=== PATIENT | male | born 1950 | race Caucasian/White ===

== ENCOUNTER → 2017-03-07 | Outpatient (CLI) | payer MEDICARE, BC | LOC: MW.CHNEURO 08:00 | PROVIDERS: ATTEND Psychiatry & Neurology Neuromuscular Medicine | DX: G20 Parkinson's disease (principal); K59.00 Constipation, unspecified | CPT/HCPCS: 99214 ==

== ENCOUNTER 2020-11-11 07:55 | Day surgery (SDC) | payer MEDICARE, BC ==
[~2020-11-11 07:55] MED LIST: Lactated Ringers 1,000 ML IV SCH; Propofol 200 MG/20 ML SDV ONE; fentaNYL 100 MCG/2 ML SDV ONE
--- NOTE | 2020-11-11 08:28 | PCM.PREANE ---
Preanesthetic Assessment - Anesthesia/Transfusion/Family Hx Anesthesia History: Prior Anesthesia Without Reaction Other Type of Anesthesia Reaction Comment: Denies any known problem as child Family History of Anesthesia Reaction: No Transfusion History: No Prior Transfusion(s) - Review of Systems General: No Symptoms Pulmonary: No Symptoms Cardiovascular: No Symptoms Gastrointestinal: No Symptoms Neurological: Pre-Existing Deficit, Tremors Other: Reports: None - Physical Assessment NPO Status Date: 11/10/20 Height: 6 ft 2 in Weight: 84.368 kg ASA Class: 2 Mental Status: Alert & Oriented x3 Airway Class: Mallampati = 2 Mouth Opening Finger Breadths: 2 (markedly limited) ROM/Head Extension: Full Lungs: Clear to Auscultation, Normal Respiratory Effort Cardiovascular: Regular Rate, Regular Rhythm - Allergies Allergies/Adverse Reactions: Allergies Allergy/AdvReac Type Severity Reaction Status Date / Time Penicillins Allergy Cannot Verified 11/07/20 10:19 Remember - Blood Blood Available: No - Anesthesia Plan Pre-Op Medication Ordered: None - Acknowledgements Anesthesia Type Planned: General Anesthesia Pt an Appropriate Candidate for the Planned Anesthesia: Yes Alternatives and Risks of Anesthesia Discussed w Pt/Guardian: Yes Pt/Guardian Understands and Agrees with Anesthesia Plan: Yes PreAnesthesia Questionnaire HEENT History: Reports: Other (See Below) Other HEENT History: wears glasses Cardiovascular History: Reports: High Cholesterol, Hypertension Respiratory History: Reports: Sleep Apnea Other Respiratory History: diagnosed with sleep apnea 20 years ago, has lost weight since then, does not use CPAP Gastrointestinal History: Reports: Chronic Constipation, Colon Polyp, GERD Genitourinary History: Reports: Other (See Below) Other Genitourinary History: Elevated prostate specific antigen, Frequency in urination Musculoskeletal History: Reports: None Neurological History: Reports: Parkinson's Other Neuro History: Idiopathic Parkinsonism Psychiatric History: Reports: Anxiety Endocrine/Metabolic History: Reports: Hypothyroidism Other Endocrine/Metabolic History: Hypothyroidism Hematologic History: Reports: None Immunologic History: Reports: None Oncologic (Cancer) History: Reports: None Dermatologic History: Reports: None - Past Surgical History Head Surgeries/Procedures: Reports: None HEENT Surgical History: Reports: Tonsillectomy Cardiovascular Surgical History: Reports: None Respiratory Surgical History: Reports: None GI Surgical History: Reports: Colonoscopy Male Surgical History: Reports: Vasectomy Endocrine Surgical History: Reports: None Neurological Surgical History: Reports: None Musculoskeletal Surgical History: Reports: None Oncologic Surgical History: Reports: None Dermatological Surgical History: Reports: None - SUBSTANCE USE Tobacco Use Status *Q: Never Tobacco User - HOME MEDS Home Medications: Home Meds Carbidopa/Levodopa [Sinemet Cr 25-100 Tablet] 2 tab PO TID 08/26/15 [History] Levothyroxine Sodium [Synthroid] 100 mcg PO ACBREAKFAST 08/26/15 [History] Multivitamin with Minerals [Multiple Vitamin] 1 tab PO DAILY 08/26/15 [History] Omeprazole [Prilosec] 1 tab PO DAILY 08/26/15 [History] Ramipril [Altace] 5 mg PO DAILY 08/26/15 [History] Simvastatin 20 mg PO BEDTIME 08/26/15 [History] traZODone HCl [Trazodone HCl] 150 mg PO BEDTIME 08/26/15 [History] L.acidoph,Paracasei, B.lactis [Probiotic] 1 tab PO DAILY 11/07/20 [History] Melatonin/Pyridoxine HCl (B6) [Melatonin 3 mg Tablet] 3 mg PO BEDTIME PRN 11/07/20 [History] Psyllium Husk (With Sugar) [Fiber Powder] 1 dose PO ASDIRECTED 11/07/20 [History] Sildenafil Citrate 20 mg PO ASDIRECTED PRN 11/07/20 [History] polyethylene glycoL 3350 [MiraLAX] 1 dose PO ASDIRECTED PRN 11/07/20 [History] - CURRENT (IN HOUSE) MEDS Current Meds: Current Medications Lactated Ringer's (Ringers, Lactated) 1,000 mls @ 125 mls/hr IV ASDIRECTED FREDERIC Discontinued Medications Fentanyl (Sublimaze) Confirm Administered Dose 100 mcg .ROUTE .STK-MED ONE Stop: 11/11/20 07:04 Lidocaine HCl (Xylocaine-Mpf 1%) Confirm Administered Dose 5 ml .ROUTE .STK-MED ONE Stop: 11/11/20 06:47 Propofol (Diprivan 20 Ml) Confirm Administered Dose 200 mg .ROUTE .STK-MED ONE Stop: 11/11/20 06:47
[2020-11-11] MEDS ORDERED: Propofol 200 MG/20 ML SDV ONE (08:47)
--- NOTE | 2020-11-11 09:57 | PCM48HPAN ---
Post Anesthesia Note - EVALUATION WITHIN 48HRS OF ANESTHETIC Vital Signs in Normal Range: Yes Patient Participated in Evaluation: Yes Respiratory Function Stable: Yes Airway Patent: Yes Cardiovascular Function Stable: Yes Hydration Status Stable: Yes Pain Control Satisfactory: Yes Nausea and Vomiting Control Satisfactory: Yes Mental Status Recovered: Yes Vital Signs: Last Vital Signs Temp 98.2 F 11/11/20 08:35 Pulse 78 11/11/20 08:35 Resp 16 11/11/20 08:35 BP 150/94 H 11/11/20 08:35 Pulse Ox 98 11/11/20 08:35
--- NOTE | 2020-11-11 09:57 | PCM.POSTAN ---
POST ANESTHESIA ASSESSMENT - MENTAL STATUS Mental Status: Alert, Oriented - VITAL SIGNS Vital Signs: Last Vital Signs Temp 98.2 F 11/11/20 08:35 Pulse 78 11/11/20 08:35 Resp 16 11/11/20 08:35 BP 150/94 H 11/11/20 08:35 Pulse Ox 98 11/11/20 08:35 - RESPIRATORY Respiratory Status: Respiratory Rate WNL, Airway Patent, O2 Saturation Stable - CARDIOVASCULAR CV Status: Pulse Rate WNL, Blood Pressure Stable - GASTROINTESTINAL GI Status: No Symptoms - POST OP HYDRATION Hydration Status: Adequate & Stable
[2020-11-11] MEDS ORDERED: Lactated Ringers 1,000 ML IV SCH (10:00)
--- NOTE | 2020-11-11 10:00 | PCM.OPNOTE ---
- General Post-Op/Procedure Note Date of Surgery/Procedure: 11/11/20 Operative Procedure(s): Colonoscopy with cold rectal sigmoid polypectomy Pre Op Diagnosis: Change in bowel habits. Personal history of rectal polyps. Post-Op Diagnosis: Rectosigmoid polyp. Pancolonic diverticulosis. Anesthesia Technique: MAC (ASA II) Primary Surgeon: Rj Knowles Condition: Good Free Text/Narrative:: DICTATION [id number] CPT CODE [id number]
[2020-11-11 10:44] VITALS: BP 143/77; PULSE 73
--- NOTE | 2020-11-11 11:35 | OR ---
SURGEON: Rj Knowles M.D. DATE OF PROCEDURE: 11/11/2020 OPERATION PERFORMED: Colonoscopy with cold rectosigmoid polypectomy. PRIMARY SURGEON: Rj Knowles MD. ANESTHESIA: MAC. ASA CLASSIFICATION: II. PREOPERATIVE DIAGNOSES: 1. Change in bowel habits. 2. Personal history of rectal polyps. POSTOPERATIVE DIAGNOSES: 1. Rectosigmoid polyp. 2. Pancolonic diverticulosis. DESCRIPTION OF PROCEDURE: The patient was taken to the endoscopy room and positioned on the endoscopy table in the left lateral decubitus position. Time-out was called for appropriate identification of the patient and procedure. Monitored anesthesia care was provided. The colonoscope was inserted into the rectum and advanced with moderate difficulty to the cecum. The prep was only fair as there was a large amount of retained liquid fecal material making visualization of small polyps very difficult. Nevertheless, I was able to advance the colonoscope all the way to the cecum and identified this by internal landmarks and external pressure. The colonoscope was retroflexed to visualize the ascending colon from below, then straightened, and slowly withdrawn. The patient did demonstrate diverticulosis throughout the entire length of this colon. The most significant area of involvement was in the sigmoid colon. No polyps, angiodysplasia, or inflammatory changes were noted in the cecum, ascending colon, hepatic flexure, transverse colon, splenic flexure, or descending colon. One polyp was encountered in the rectosigmoid, and this was removed with cold biopsy forceps. The colonoscope was retroflexed in the rectum to visualize the anal orifice from above. Again, no tumors or polyps were seen. The colonoscope was then straightened, the rectum aspirated, and the colonoscope removed. The patient tolerated the procedure well and was taken to recovery room in stable condition. ZOIE / BARRY /[id number]
== END 2020-11-11 11:05 | disposition home or self-care (01) ==
LOC: MW.SDS 07:55
PROVIDERS: ATTEND Surgery
DX: K63.5 Polyp of colon (principal); K57.30 Diverticulosis of large intestine without perforation or abscess without bleeding; I10 Essential (primary) hypertension; E78.00 Pure hypercholesterolemia, unspecified; E03.9 Hypothyroidism, unspecified; G20 Parkinson's disease; Z88.0 Allergy status to penicillin; Z79.899 Other long term (current) drug therapy; Z79.890 Hormone replacement therapy
CPT/HCPCS: 45380; 88305; J2001; J2704; J3010; 00811

== ENCOUNTER 2024-09-28 21:24 | Emergency (ER) | payer MEDICARE, BC | END 2024-09-28 21:45 | disposition left against medical advice (07) | LOC: MW.ED 21:24 | DX: Z53.21 Procedure and treatment not carried out due to patient leaving prior to being seen by health care provider (principal) ==

== ENCOUNTER 2025-02-15 10:14 | Emergency (ER) | payer MEDICARE, BC ==
[2025-02-15] MEDS ORDERED: Sodium Chloride 0.9% 10 ML Syringe FLUSH PRN (11:04)
[2025-02-15] MEDS ORDERED: Sodium Chloride 0.9% 2.5 ML Syringe FLUSH PRN (11:04)
[2025-02-15 11:19] LABS: BASOPHILS ABSOLUTE AUTO 0.03 K/uL (0.00-0.20); BASOPHILS PERCENT AUTO 0.6 % (0.0-1.0); EOSINOPHILS ABSOLUTE AUTO 0.02 K/uL (0.00-0.45); EOSINOPHILS PERCENT AUTO 0.4 % (0.0-6.0); HEMATOCRIT 39.2 % (42.0-52.0); HEMOGLOBIN 13.5 g/dL (14.0-18.0); IMMATURE GRAN ABSOLUTE AUTO 0.01 K/uL (0.00-0.05); IMMATURE GRAN PERCENT AUTO 0.2 % (0.0-0.4); LYMPHOCYTES ABSOLUTE AUTO 0.87 K/uL (1.00-4.80); MEAN CORPUSCULAR HEMOGLOBIN 33.5 pg (28.0-32.0); MEAN CORPUSCULAR HGB CONC 34.4 g/dL (32.0-36.0); MEAN CORPUSCULAR VOLUME 97.3 fL (83.0-99.0); MEAN PLATELET VOLUME 9.7 fL (9.4-12.4); MONOCYTES ABSOLUTE AUTO 0.65 K/uL (0.00-0.80); MONOCYTES PERCENT AUTO 11.9 % (0.0-8.0); NEUTROPHILS ABSOLUTE AUTO 3.86 K/uL (1.80-7.70); NEUTROPHILS PERCENT AUTO 70.9 % (41.0-71.0); PLATELET COUNT,PLT 209 K/uL (150-400); RED BLOOD CELL COUNT 4.03 M/uL (4.52-5.90); WHITE BLOOD CELL COUNT,WBC 5.44 K/uL (3.9-11.3)
[2025-02-15 12:02] LABS: A/G RATIO 1.4 (0.9-1.6); ALBUMIN 3.9 g/dL (3.4-5.0); BILIRUBIN TOTAL 0.8 mg/dL (0.2-1.0); CALCIUM 9.1 mg/dL (8.5-10.1); CARBON DIOXIDE,CO2 34.6 mmol/L (21.0-32.0); CREATININE 0.8 mg/dL (0.8-1.3); EST CRCL DRUG DOSING (CG) 73.89 mL/min; POTASSIUM,K 4.2 mmol/L (3.5-5.1); PROTEIN TOTAL,TP 6.7 g/dL (6.4-8.2)
[2025-02-15 12:28] VITALS: BP 139/84
[2025-02-15] MEDS: Iopamidol 755 MG/ML 500 ML Multipack Bottle IVPUSH STA (12:38)
[2025-02-15] MEDS: cefTRIAXone 1 GM in Water For Injection, Sterile 10 ML IVPUSH ONE (13:34)
[2025-02-15] MEDS: metroNIDAZOLE/Normal Saline 500 MG in Premix Bag 1 BAG IV ONE (13:37)
[2025-02-15] MEDS: metroNIDAZOLE/Normal Saline 100 ML ONE ×2 (13:37)
[2025-02-15 14:47] VITALS: PULSE 66
== END 2025-02-15 14:46 | disposition home or self-care (01) ==
LOC: MW.ED 10:14
DX: K57.32 Diverticulitis of large intestine without perforation or abscess without bleeding (principal); J18.9 Pneumonia, unspecified organism; I10 Essential (primary) hypertension; E03.9 Hypothyroidism, unspecified; Z88.0 Allergy status to penicillin; Z79.890 Hormone replacement therapy; Z79.899 Other long term (current) drug therapy; E78.00 Pure hypercholesterolemia, unspecified
CPT/HCPCS: 36415; 74177; 80053; 83690; 85025; 96365; 96375; 99284; J0696; J1836; Q9967; 99283